=== PATIENT | female | born 1950 | race Caucasian/White ===

== ENCOUNTER 2016-09-29 16:24 | Emergency (ER) | payer OTHER, MEDICARE ==
[~2016-09-29] VITALS: Ht 157.5 cm; Wt 105.0 kg
[~2016-09-29 16:24] MED LIST: BACT800T5 PO; DOXY100T PO; LORTA5 PO; NIFE1TAB85 PO
[2016-09-29 16:51] VITALS: BP 140/71; PULSE 79; RESP 18; TEMP 98.2; O2SAT 96
--- NOTE | 2016-09-29 17:06 | PD ---
HPI Chief Complaint: Respiratory Symptoms Time Seen by Provider: 16:52 Travel History International Travel<30 days: No Contact w/Intl Traveler<30days: No Traveled to known affect area: No History of Present Illness HPI 66yo F with PMH of HTN (off medications) presents to the ED with c/o worsening sob after walking for 3-4 days. States that she feels sob walking from store to parking lot and this is new. +Chronic cough. Pt also states she had elevated blood pressure when she went to [facility]. Denies any fever, chest pain, n/v , abdominal pain, focal weakness or numbness. Pt has chronic bilateral lower ext swelling and chronic cellulitis and states that her cellulitis is actually improved. Pt called her PMD Dr. Medrano today and was informed to come to the ED for further evaluation of her SOB. PFSH Past Medical History Hx Anticoagulant Therapy: No Arthritis: Yes (KNEES) Asthma: No Autoimmune Disease: No Heart Rhythm Problems: No Cancer: No Cardiovascular Problems: Yes (HTN) High Cholesterol: No Chemotherapy: No Chest Pain: No Congestive Heart Failure: No COPD: No Cerebrovascular Accident: No Diabetes: No Diminished Hearing: No Endocrine: No Gastrointestinal Disorders: Yes (INCONTINENCE URINARY) GERD: No Genitourinary: Yes (INCONTINENCE) Headaches: No Hiatal Hernia: No Heparin Induced Thrombocytopen: No Hypertension: Yes (HTN IN THE PAST) Immune Disorder: No Implanted Vascular Access Dvce: No Kidney Stones: No Musculoskeletal: Yes Neurologic: No Psychiatric: No Reproductive: No Respiratory: No Migraines: No Radiation Therapy: No Renal Failure: No Seizures: No Sleep Apnea: No Thyroid Disease: No Ulcer: Yes (HX OF ULCERS- BLEEDING ) Tetanus Vaccination: Unknown ?: Not Menopausal: Yes Past Surgical History Abdominal Surgery: Yes (2 ) AICD: No Arteriovenous Shunt: No Cardiac Surgery: No Section: Yes Ear Surgery: No Endocrine Surgery: No Eye Surgery: No Genitourinary Surgery: No Gynecologic Surgery: No Insulin Pump: No Joint Replacement: No Neurologic Surgery: No Oral Surgery: No Pacemaker: No Thoracic Surgery: No Tonsillectomy: Yes Other Surgery: Yes Social History Alcohol Use: Yes (OCC) Tobacco Use: No Substance Use: No Allergies-Medications (Allergen,Severity, Reaction): Coded Allergies: No Known Allergies (Unverified , 09/29/16) Reported Meds & Prescriptions Reported Meds & Active Scripts Active Reported Potassium Chloride ER (Potassium Chloride) 10 Meq Cap 10 Meq PO DAILY Potassium Chloride CR (Potassium Chloride) 10 Meq Tab 10 Meq PO BID Meloxicam 15 Mg Tab 15 Mg PO DAILY Zantac (Ranitidine HCl) 150 Mg Tab 150 Mg PO DAILY Review of Systems Except as stated in HPI: all other systems reviewed are Neg Physical Exam Narrative GENERAL: 66yo F not in distress. SKIN: Focused skin assessment warm/dry. HEAD: Atraumatic. Normocephalic. NECK: Trachea midline. No JVD. CARDIOVASCULAR: Regular rate and rhythm. No murmur appreciated. RESPIRATORY: No accessory muscle use. Clear to auscultation. Breath sounds equal bilaterally. No crackles. GASTROINTESTINAL: Abdomen soft, non-tender, nondistended. MUSCULOSKELETAL: +Chronic cellulitis and nonhealing ulcer. Not warm to palpation. +Edema. Clear drainage in right. NEUROLOGICAL: Awake and alert. No obvious cranial nerve deficits. Motor grossly within normal limits. Normal speech. PSYCHIATRIC: Appropriate mood and affect; insight and judgment normal. Data Data Last Documented VS Vital Signs Date Time Temp Pulse Resp B/P Pulse Ox O2 Delivery O2 Flow Rate FiO2 09/29/16 18:55 Room Air 09/29/16 18:55 69 18 146/83 96 09/29/16 17:34 2 09/29/16 16:51 98.2 Orders Complete Blood Count With Diff (09/29/16 17:00) Basic Metabolic Panel (Bmp) (09/29/16 17:00) B-Type Natriuretic Peptide (09/29/16 17:00) Act Partial Throm Time (Ptt) (09/29/16 17:00) Prothrombin Time / Inr (Pt) (09/29/16 17:00) Ckmb (Isoenzyme) Profile (09/29/16 17:00) Troponin I (09/29/16 17:00) Iv Access Insert/Monitor (09/29/16 17:00) Electrocardiogram (09/29/16 17:00) Ecg Monitoring (09/29/16 17:00) Oximetry (09/29/16 17:00) Oxygen Administration (09/29/16 17:00) Chest, Single Ap (09/29/16 17:00) CKMB (09/29/16 17:27) CKMB% (09/29/16 17:27) Labs Laboratory Tests Test 09/29/16 17:27 White Blood Count 9.4 TH/MM3 Red Blood Count 4.98 MIL/MM3 Hemoglobin 14.5 GM/DL Hematocrit 43.5 % Mean Corpuscular Volume 87.3 FL Mean Corpuscular Hemoglobin 29.1 PG Mean Corpuscular Hemoglobin 33.3 % Concent Red Cell Distribution Width 13.3 % Platelet Count 272 TH/MM3 Mean Platelet Volume 9.5 FL Neutrophils (%) (Auto) 54.5 % Lymphocytes (%) (Auto) 33.2 % Monocytes (%) (Auto) 8.2 % Eosinophils (%) (Auto) 3.3 % Basophils (%) (Auto) 0.8 % Neutrophils # (Auto) 5.1 TH/MM3 Lymphocytes # (Auto) 3.1 TH/MM3 Monocytes # (Auto) 0.8 TH/MM3 Eosinophils # (Auto) 0.3 TH/MM3 Basophils # (Auto) 0.1 TH/MM3 CBC Comment DIFF FINAL Differential Comment Prothrombin Time 11.3 SEC Prothromb Time International 1.0 RATIO Ratio Activated Partial 21.7 SEC Thromboplast Time Sodium Level 142 MEQ/L Potassium Level 4.1 MEQ/L Chloride Level 108 MEQ/L Carbon Dioxide Level 25.2 MEQ/L Anion Gap 9 MEQ/L Blood Urea Nitrogen 9 MG/DL Creatinine 1.00 MG/DL Estimat Glomerular Filtration 55 ML/MIN Rate Random Glucose 93 MG/DL Calcium Level 7.9 MG/DL Total Creatine Kinase 147 U/L Creatine Kinase MB 2.8 NG/ML Troponin I LESS THAN 0.02 NG/ML B-Type Natriuretic Peptide 48 PG/ML [facility] Medical Decision Making Medical Screen Exam Complete: Yes Emergency Medical Condition: Yes Interpretation(s) EKG: NSR 67bpm. Normal axis. TWI V2. Differential Diagnosis New onset CHF vs. Pneumonia vs. URI Narrative Course 66yo F well appearing here with complain of worsening exertional dyspnea. Pt states when she sits there, she does not feel sob. O2 sat 97% on RA. Pt denies any chest pain and is not in distress. Pt was also concern with elevated blood pressure but BP has been normal here. Labs reviewed, no leukocytosis. Troponin negative. BNP 48. CXR showed cardiomegaly with minimal bibasilar atelectasis. Pt's lungs are clear on exam. I feel that pt does need cardiology follow up for work up for new onset CHF. However, pt can follow up as an outpatient at this time. She has an appointment with her primary care physician Dr. Medrano at 9:30am tomorrow. Return precautions given. Diagnosis Primary Impression: Dyspnea on exertion Patient Instructions: General Instructions Departure Forms: Tests/Procedures Additional Instructions: Please follow up with your PMD for referral for price changer or follow up with Dr. Jauregui in 1-2 days. Return to the ED if symptoms worsen. Med/Other Pt SpecificInfo: No Change to Meds Disposition: 01 DISCHARGE HOME Condition: Stable Denise Hull DO Sep 29, 2016 17:06
[2016-09-29] MEDS ORDERED: MELO-1 PO (17:27)
[2016-09-29] MEDS ORDERED: ZANT150T2 PO (17:27)
[2016-09-29] MEDS ORDERED: POTA10TA8 PO (17:27)
[2016-09-29] MEDS ORDERED: POTA10CA PO (17:27)
[2016-09-29 17:33] VITALS: BP 122/77; PULSE 66; RESP 16; O2SAT 97
[2016-09-29 17:34] VITALS: RESP 16; O2SAT 97
[2016-09-29 17:53] LABS: AUTOMATED NEUTROPHIL # 5.1 TH/MM3 (1.8-7.7); BASOPHIL # 0.1 TH/MM3 (0-0.2); BASOPHIL % 0.8 % (0.0-2.0); EOSINOPHIL # 0.3 TH/MM3 (0-0.4); EOSINOPHIL % 3.3 % (0.0-4.0); HEMATOCRIT 43.5 % (35.0-46.0); LYMPH % 33.2 % (9.0-44.0); LYMPHOCYTE # 3.1 TH/MM3 (1.0-4.8); MEAN CELL VOLUME 87.3 FL (80.0-100.0); MEAN CORPUSCULAR HEMOGLOBIN 29.1 PG (27.0-34.0); MEAN CORPUSCULAR HGB CONC 33.3 % (32.0-36.0); MONO % 8.2 % (0.0-8.0); NEUT % 54.5 % (16.0-70.0); PLATELET COUNT 272 TH/MM3 (150-450); RED BLOOD COUNT 4.98 MIL/MM3 (4.00-5.30); RED CELL DISTRIBUTION WIDTH 13.3 % (11.6-17.2); WHITE BLOOD COUNT 9.4 TH/MM3 (4.0-11.0)
[2016-09-29 17:54] LABS: CHLORIDE 108 MEQ/L (98-107); POTASSIUM 4.1 MEQ/L (3.5-5.1); SODIUM (NA) 142 MEQ/L (136-145)
[2016-09-29 17:59] LABS: ANION GAP 9 MEQ/L (5-15); BICARBONATE 25.2 MEQ/L (21.0-32.0); BLOOD UREA NITROGEN 9 MG/DL (7-18); HEMO FLAGS DIFF FINAL
[2016-09-29 18:02] LABS: GLOMERULAR FILTRATION RATE 55 ML/MIN (>89)
[2016-09-29 18:05] LABS: CREATINE KINASE 147 U/L (26-192)
[2016-09-29 18:08] LABS: APTT (PATIENT) 21.7 SEC (24.3-30.1); PROTHROMBIN TIME - PATIENT 11.3 SEC (9.8-11.6)
--- NOTE | 2016-09-29 18:09 | RADHPO ---
EXAM DATE/TIME: 09/29/2016 17:52 [facility] COMPARISON: CHEST SINGLE AP, February 27, 2014, 17:55. INDICATIONS : Shortness of breath. MEDICAL HISTORY : Hypertension. SURGICAL HISTORY : None. ENCOUNTER: Initial ACUITY: 3 weeks PAIN SCORE: 0/10 LOCATION: Bilateral chest FINDINGS: A single view of the chest demonstrates cardiomegaly and minimal bibasilar densities. The cardiomedia stinal contours are unremarkable. Osseous structures are intact. CONCLUSION: Cardiomegaly with minimal bibasilar atelectasis. Lenin Waggoner MD on September 29, 2016 at 18:08 Board Certified Radiologist. This report was verified electronically.
[2016-09-29 18:18] LABS: CKMB 2.8 NG/ML (0.5-3.6)
[2016-09-29 18:55] VITALS: BP 146/83; PULSE 69; RESP 18; O2SAT 96
--- NOTE | 2016-09-30 10:57 | EKG ---
Date Performed: 09/29/2016 Time Performed: 17:32:48 PTAGE: 66 years EKG: Sinus rhythm Prolonged QT interval Possible anterior infarct - age undetermined Inferior/lateral ST-T changes are nonspecific Abnormal ECG PREVIOUS TRACING : 02/28/2014 05.53 Compared to prior tracing no significant change DOCTOR: Bethany Carter Interpretating Date/Time 09/30/2016 10:56:55
== END 2016-09-29 19:52 | disposition home or self-care (01) ==
LOC: PHED 16:24
DX: R06.00 Dyspnea, unspecified (principal); I10 Essential (primary) hypertension; I45.81 Long QT syndrome; R94.31 Abnormal electrocardiogram [ECG] [EKG]
CPT/HCPCS: 71010; 80048; 82550; 82552; 83880; 84484; 85025; 85610; 85730; 93005

== ENCOUNTER 2017-03-06 01:10 | Inpatient (IN) | payer OTHER, MEDICARE ==
[2017-03-06] VITALS (8 sets, daily range): BP systolic 96–134; BP diastolic 60–88; PULSE 68–92; RESP 14–20; TEMP 96.1–99; O2SAT 94–97
[~2017-03-06] VITALS: Ht 157.5 cm; Wt 100.9 kg
[~2017-03-06 01:10] MED LIST changes: -BACT800T5 PO; -DOXY100T PO; -LORTA5 PO; +MELO-1 PO; -NIFE1TAB85 PO; +POTA10CA PO; +POTA10TA8 PO; +ZANT150T2 PO
--- NOTE | 2017-03-06 02:04 | PD ---
HPI Chief Complaint: Skin Problem Time Seen by Provider: 02:01 Travel History International Travel<30 days: No Contact w/Intl Traveler<30days: No Traveled to known affect area: No History of Present Illness HPI The patient is a 67-year-old female who states she ran out of her Lasix 6 months ago on her legs started swelling in the last 4 days she has had cellulitis. She also states she has had intermittent vomiting for the last 7 days. She did not call her doctor to refill the Lasix. She has an appointment this coming Wednesday with her primary care physician. She states she gets bilateral lower leg swelling but the swelling on the left leg was more and she gets blisters and pockets of fluid that become itchy and she scratches her legs and this breaks the skin. Apparently, bacterial intubated some of the breaks in the skin on her left leg causing the cellulitis. She denies any fever. She has never had a clot in her legs before. She is not on anticoagulants. PFSH Past Medical History Hx Anticoagulant Therapy: No Arthritis: Yes (KNEES) Asthma: No Autoimmune Disease: No Heart Rhythm Problems: No Cancer: No Cardiovascular Problems: Yes (HTN) High Cholesterol: No Chemotherapy: No Chest Pain: No Congestive Heart Failure: No COPD: No Cerebrovascular Accident: No Diabetes: No Diminished Hearing: No Endocrine: No Gastrointestinal Disorders: Yes (INCONTINENCE URINARY) GERD: No Genitourinary: Yes (INCONTINENCE) Headaches: No Hiatal Hernia: No Heparin Induced Thrombocytopen: No Hypertension: Yes (HTN IN THE PAST) Immune Disorder: No Implanted Vascular Access Dvce: No Kidney Stones: No Musculoskeletal: Yes Neurologic: No Psychiatric: No Reproductive: No Respiratory: No Migraines: No Radiation Therapy: No Renal Failure: No Seizures: No Sleep Apnea: No Thyroid Disease: No Ulcer: Yes (HX OF ULCERS- BLEEDING ) ?: Not Menopausal: Yes Past Surgical History Abdominal Surgery: Yes (2 ) AICD: No Arteriovenous Shunt: No Cardiac Surgery: No Section: Yes Ear Surgery: No Endocrine Surgery: No Eye Surgery: No Genitourinary Surgery: No Gynecologic Surgery: No Insulin Pump: No Joint Replacement: No Neurologic Surgery: No Oral Surgery: No Pacemaker: No Thoracic Surgery: No Tonsillectomy: Yes Other Surgery: Yes Social History Alcohol Use: Yes (OCC) Tobacco Use: No Substance Use: No Allergies-Medications (Allergen,Severity, Reaction): Coded Allergies: No Known Allergies (Unverified , 03/06/17) Reported Meds & Prescriptions Reported Meds & Active Scripts Active No Active Prescriptions or Reported Medications Review of Systems Except as stated in HPI: all other systems reviewed are Neg Physical Exam Narrative GENERAL: The patient is alert, obese, oriented 3 and slight apparent distress with her cellulitis of the left leg. Her vital signs are normal. SKIN: Focused skin assessment warm/dry. There is redness of the left leg, apparent cellulitis. There is a 8 mm laceration with the patient apparently scratched her skin on the left lower medial leg. It is oozing clear fluid. HEAD: Atraumatic. Normocephalic. EYES: Pupils equal and round. No scleral icterus. No injection or drainage. ENT: No nasal bleeding or discharge. Mucous membranes pink and moist. NECK: Trachea midline. No JVD. CARDIOVASCULAR: Regular rate and rhythm. No murmur appreciated. RESPIRATORY: No accessory muscle use. Clear to auscultation. Breath sounds equal bilaterally. GASTROINTESTINAL: Abdomen soft, non-tender, nondistended. Hepatic and splenic margins not palpable. MUSCULOSKELETAL: No obvious deformities. No clubbing. No cyanosis. No edema. NEUROLOGICAL: Awake and alert. No obvious cranial nerve deficits. Motor grossly within normal limits. Normal speech. PSYCHIATRIC: Appropriate mood and affect; insight and judgment normal. Data Data Last Documented VS Vital Signs Date Time Temp Pulse Resp B/P (MAP) Pulse Ox O2 Delivery O2 Flow Rate FiO2 03/06/17 01:41 89 03/06/17 01:37 16 134/88 (103) 96 03/06/17 01:25 99.0 Orders Orders Complete Blood Count With Diff (03/06/17 02:08) Comprehensive Metabolic Panel (03/06/17 02:08) B-Type Natriuretic Peptide (03/06/17 02:08) Urinalysis - C+S If Indicated (03/06/17 02:08) Us Leg Venous Doppler Bilat (03/06/17 02:08) Chest, Pa & Lat (03/06/17 02:08) Lipase (03/06/17 02:08) Potassium Chloride (Kcl) (03/06/17 03:00) Sodium Chlor 0.9% 1000 Ml Inj (Ns 1000 M (03/06/17 04:00) Admit Order (Ed Use Only) (03/06/17 04:24) Vancomycin Inj (Vancomycin Inj) (03/06/17 04:30) Labs Laboratory Tests Test 03/06/17 02:00 White Blood Count 12.0 TH/MM3 Red Blood Count 4.87 MIL/MM3 Hemoglobin 14.5 GM/DL Hematocrit 42.9 % Mean Corpuscular Volume 88.1 FL Mean Corpuscular Hemoglobin 29.9 PG Mean Corpuscular Hemoglobin Concent 33.9 % Red Cell Distribution Width 13.1 % Platelet Count 211 TH/MM3 Mean Platelet Volume 9.7 FL Neutrophils (%) (Auto) 85.8 % Lymphocytes (%) (Auto) 9.5 % Monocytes (%) (Auto) 4.3 % Eosinophils (%) (Auto) 0.0 % Basophils (%) (Auto) 0.4 % Neutrophils # (Auto) 10.4 TH/MM3 Lymphocytes # (Auto) 1.1 TH/MM3 Monocytes # (Auto) 0.5 TH/MM3 Eosinophils # (Auto) 0.0 TH/MM3 Basophils # (Auto) 0.0 TH/MM3 CBC Comment DIFF FINAL Differential Comment Blood Urea Nitrogen 37 MG/DL Creatinine 1.50 MG/DL Random Glucose 136 MG/DL Total Protein 7.7 GM/DL Albumin 2.8 GM/DL Calcium Level 8.7 MG/DL Alkaline Phosphatase 86 U/L Aspartate Amino Transf (AST/SGOT) 61 U/L Alanine Aminotransferase (ALT/SGPT) 56 U/L Total Bilirubin 1.5 MG/DL Sodium Level 136 MEQ/L Potassium Level 3.0 MEQ/L Chloride Level 97 MEQ/L Carbon Dioxide Level 28.9 MEQ/L Anion Gap 10 MEQ/L Estimat Glomerular Filtration Rate 34 ML/MIN B-Type Natriuretic Peptide 25 PG/ML Lipase 143 U/L MDM Medical Decision Making Medical Screen Exam Complete: Yes Emergency Medical Condition: Yes Medical Record Reviewed: Yes Interpretation(s) The complete metabolic profile shows a potassium of 3.0, BUN of 37, creatinine 1.5, GFR 34, glucose 136 with total bilirubin 1.5 and AST of 61 and ALT of 56 but is otherwise normal. The lipase is normal. The CBC shows a white count of 12,000 with 86% neutrophils. The ultrasound is negative for DVT. Differential Diagnosis Cellulitis, congestive heart failure, venous insufficiency, lymphatic insufficiency, DVT, electrolyte disorder Narrative Course The patient has cellulitis. She ran out of her Lasix approximate 6 months ago. She did not call her doctor about this and this is likely responsible spur some of the edema that she has. She is dehydrated, likely moderate dehydration. She has been vomiting for a week according to her and has almost no abdominal pain. There is no abdominal distention. Impressions: Cellulitis left lower extremity, persistent vomiting, dehydration- moderate and noncompliance to Lasix and medical follow-up/communication with her doctor Diagnosis Primary Impression: Cellulitis of left lower extremity Additional Impressions: Persistent vomiting Moderate dehydration Noncompliance with medication regimen Admitting Information Admitting Physician Requests: Admit Scripts No Active Prescriptions or Reported Meds Niranjan Shelby MD Mar 06, 2017 02:04
[2017-03-06 02:22] LABS: AUTOMATED NEUTROPHIL # 10.4 TH/MM3 (1.8-7.7); BASOPHIL % 0.4 % (0.0-2.0); HEMATOCRIT 42.9 % (35.0-46.0); HEMO FLAGS DIFF FINAL; LYMPH % 9.5 % (9.0-44.0); LYMPHOCYTE # 1.1 TH/MM3 (1.0-4.8); MEAN CELL VOLUME 88.1 FL (80.0-100.0); MEAN CORPUSCULAR HEMOGLOBIN 29.9 PG (27.0-34.0); MEAN CORPUSCULAR HGB CONC 33.9 % (32.0-36.0); MONO % 4.3 % (0.0-8.0); NEUT % 85.8 % (16.0-70.0); PLATELET COUNT 211 TH/MM3 (150-450); RED BLOOD COUNT 4.87 MIL/MM3 (4.00-5.30); RED CELL DISTRIBUTION WIDTH 13.1 % (11.6-17.2)
[2017-03-06 02:34] LABS: CHLORIDE 97 MEQ/L (98-107); SODIUM (NA) 136 MEQ/L (136-145)
[2017-03-06 02:38] LABS: ANION GAP 10 MEQ/L (5-15); BICARBONATE 28.9 MEQ/L (21.0-32.0); BLOOD UREA NITROGEN 37 MG/DL (7-18)
[2017-03-06 02:41] LABS: ALT (GPT) 56 U/L (10-53); AST (GOT) 61 U/L (15-37); GLOMERULAR FILTRATION RATE 34 ML/MIN (>89)
[2017-03-06 02:42] LABS: TOTAL BILIRUBIN ADULT 1.5 MG/DL (0.2-1.0)
[2017-03-06 02:44] LABS: ALKALINE PHOSPHATASE 86 U/L (45-117)
[2017-03-06] MEDS ORDERED: POTASSIUM CHLORIDE 20 MEQ CONTROLLED RELEASE TAB PO ONE (03:00)
--- NOTE | 2017-03-06 03:25 | RADRPT ---
EXAM DATE/TIME: 03/06/2017 03:17 [facility] COMPARISON: No previous studies available for comparison. INDICATIONS : Shortness of breath. MEDICAL HISTORY : Hypertension. SURGICAL HISTORY : None. ENCOUNTER: Initial ACUITY: 4 - 6 days PAIN SCORE: 6/10 LOCATION: Bilateral chest FINDINGS: PA and lateral views of the chest demonstrate subsegmental atelectasis or scarring at the bases. No d ense consolidation or effusion. Mild dextroscoliosis. Heart size within normal limits. CONCLUSION: 1. Linear atelectasis or scarring at the lung bases. No effusion or pneumothorax. Donovan Eastman MD on March 06, 2017 at 3:23 Board Certified Radiologist. This report was verified electronically.
[2017-03-06] MEDS ORDERED: SODIUM CHLOR 0.9% 1000 ML INJ 1,000 ML IV SCH ×2 (04:00→04:30)
[2017-03-06] MEDS ORDERED: VANCOMYCIN INJ 1,000 MG in SODIUM CHLOR 0.9% 250 ML INJ 250 ML IV ONE (04:30)
[2017-03-06] MEDS ORDERED: ONDANSETRON HCL 4 MG/2 ML VIAL IV ONE (04:30)
[2017-03-06] MEDS ORDERED: SENNOSIDES 8.6 MG TAB PO PRN (04:45)
[2017-03-06] MEDS ORDERED: BISACODYL 10 MG SUPP RECTAL PRN (04:45)
[2017-03-06] MEDS ORDERED: LACTULOSE SYRUP 20 GM/30 ML CUP PO PRN (04:45)
[2017-03-06] MEDS ORDERED: Vancomycin Consult Pharmacy 1 EA OTHER SCH (04:45)
[2017-03-06] MEDS ORDERED: ONDANSETRON HCL 4 MG/2 ML VIAL IVP PRN (04:45)
[2017-03-06] MEDS ORDERED: ACETAMINOPHEN 325 MG TAB PO PRN (04:45)
[2017-03-06] MEDS ORDERED: FUROSEMIDE 40 MG/4 ML VIAL IV PUSH ONE (04:45)
[2017-03-06] MEDS ORDERED: MAGNESIUM HYDROXIDE SUSP 30 ML CUP PO PRN (04:45)
[2017-03-06] MEDS ORDERED: SODIUM CHLORIDE 0.9% FLUSH 10 ML FLUSH IV FLUSH PRN (04:45)
--- NOTE | 2017-03-06 05:17 | RADRPT ---
EXAM DATE/TIME: 03/06/2017 04:15 [facility] COMPARISON: No previous studies available for comparison. INDICATIONS : Bilateral leg swelling. MEDICAL HISTORY : Hypertension. Urinary incontinence. Arthritis. SURGICAL HISTORY : Tonsillectomy. section. ENCOUNTER: Initial ACUITY: 4 - 6 days PAIN SCORE: 3/10 LOCATION: Bilateral legs. TECHNIQUE: Venous ultrasound of the left and right leg was performed from the inguinal ligament to the proximal calf. Real-time, color Doppler and spectral tracing, compression and augmentation techniques were us ed. FINDINGS: RIGHT LEG: There is normal compressibility of the deep venous system from the inguinal region to the proximal ca lf. No echogenic clot is seen in the lumen of the common femoral, femoral, popliteal, and posterior tibial veins. There is a normal response of the venous system to proximal and distal augmentation an d respiration. LEFT LEG: There is normal compressibility of the deep venous system from the inguinal region to the proximal ca lf. No echogenic clot is seen in the lumen of the common femoral, femoral, popliteal, and posterior tibial veins. There is a normal response of the venous system to proximal and distal augmentation an d respiration. CONCLUSION: 1. Negative for lower extremity deep venous thrombosis bilaterally. Mildly enlarged inguinal lymph no mitchel. Donovan Eastman MD on March 06, 2017 at 5:15 Board Certified Radiologist. This report was verified electronically.
[2017-03-06 05:41] LABS: BLOOD, URINE SMALL (NEG); GLUCOSE,URINE NEG (NEG); KETONE, URINE NEG (NEG); NITRITE,URINE POS (NEG)
[2017-03-06 05:45] LABS: URINE COLOR YELLOW (YELLW/STRAW)
[2017-03-06 05:46] LABS: BACTERIA, URINE MANY /hpf; COMMENT (UR) CULTURE INDICATED; CULTURE IF INDICATED CULTURE INDICATED; SQUAMOUS EPITHELIAL CELL URINE 0-5 /hpf (0-5)
[2017-03-06] MEDS: CEFEPIME INJ 1,000 MG in SODIUM CHLORIDE 0.9% INJ 100 ML IV SCH ×2 (05:52→18:13)
[2017-03-06] MEDS: ACETAMINOPHEN/HYDROcodone 325 MG/5 MG TAB PO PRN ×4 (05:52→18:13)
[2017-03-06] MEDS: DOCUSATE SODIUM 50 MG/SENNA 8.6 MG TAB PO SCH ×2 (09:00→20:14)
[2017-03-06] MEDS: SODIUM CHLORIDE 0.9% FLUSH 10 ML FLUSH IV FLUSH SCH ×2 (09:46→20:14)
[2017-03-06] MEDS: HEPARIN SODIUM - SQ 10,000 UNITS/ML VIAL SQ SCH ×2 (09:51→20:15)
[2017-03-06] MEDS ORDERED: ENALAPRILAT 1.25 MG/ML VIAL IV PUSH PRN (11:45)
[2017-03-06] MEDS ORDERED: ALUMINUM/MAGNESIUM/SIMETH 30 ML CUP PO PRN (11:45)
[2017-03-06] MEDS ORDERED: cloNIDine HCL 0.1 MG TAB PO PRN (11:45)
--- NOTE | 2017-03-06 12:03 | HHI.HP ---
[facility] Service [facility] Primary Care Physician Viv Medrano MD Admission Diagnosis cellulitis left lower extremity Diagnoses: (1) Cellulitis of left lower extremity Diagnosis: Principal Travel History International Travel<30 Days: No Contact w/Intl Traveler <30 Da: No Traveled to Known Affected Are: No History of Present Illness Mrs. Rondon is a 67-year-old female. She is here secondary to cellulitis more significant at the left lower extremity compared to the right. She reports that the onset was within 24-48 hours. Since then has been rapid progression of the left lower extremity. She has recurrent problems with cellulitis. She's had several admissions secondary to cellulitis. Baseline medical conditions are hypertension and hyperlipidemia. She denies any lung or cardiac disease and denies diabetes mellitus type 2. No reports of fever or chills. Review of Systems Constitutional: DENIES: Diaphoretic episodes, Fatigue, Fever, Chills Eyes: DENIES: Blurred vision, Diplopia, Eye inflammation Ears, nose, mouth, throat: DENIES: Tinnitus, Hearing loss, Vertigo Respiratory: DENIES: Apneas, Cough, Snoring Cardiovascular: DENIES: Chest pain, Palpitations, Syncope Gastrointestinal: DENIES: Abdominal pain, Black stools, Bloody stools Musculoskeletal: DENIES: Joint pain, Muscle aches, Stiffness Integumentary: COMPLAINS OF: Abnormal pigmentation Hematologic/lymphatic: DENIES: Bruising, Lymphadenopathy Immunologic/allergic: DENIES: Eczema, Urticaria Neurologic: DENIES: Abnormal gait, Headache, Paresthesias Psychiatric: DENIES: Anxiety, Confusion, Hallucinations Past Family Social History Past Medical History Hypertension Hyperlipidemia Past Surgical History Tonsillectomy Reported Medications Reported Meds & Active Scripts Active No Active Prescriptions or Reported Medications Allergies: Coded Allergies: No Known Allergies (Unverified , 03/06/17) Active Ordered Medications Administered Medications Medications (Trade) Dose Ordered Sig/Connie Route PRN Reason Start Time Stop Time Status Last Admin Dose Admin Cefepime HCl 1000 mg/Sodium Chloride 100 ml @ 200 mls/hr Q12H IV 03/06/17 06:00 03/06/17 05:52 Sodium Chloride (NS Flush) 2 ml BID IV FLUSH 03/06/17 09:00 03/06/17 09:46 Heparin Sodium (Porcine) (Heparin Inj) 5,000 units Q12H SQ 03/06/17 09:00 03/06/17 09:51 Acetaminophen/ Hydrocodone Bitart (Antelope 5-325 Mg) 1 tab Q4H PRN PO PAIN SCALE 3 TO 5 03/06/17 04:45 03/06/17 09:55 Family History Liver cancer in father Pancreatic cancer in mother Breast cancer in paternal grandmother Melanoma in sister 1 Breast cancer in sister 2 Social History No smoking No alcohol abuse No illicit drug abuse Physical Exam Vital Signs Vital Signs Date Time Temp Pulse Resp B/P (MAP) Pulse Ox O2 Delivery O2 Flow Rate FiO2 03/06/17 10:59 18 03/06/17 08:00 97.8 72 20 106/65 (79) 94 03/06/17 05:30 03/06/17 05:20 98.5 91 16 115/73 (87) 94 03/06/17 05:04 74 16 118/77 (91) 97 03/06/17 03:30 88 16 127/72 (90) 96 03/06/17 01:41 89 03/06/17 01:37 89 16 134/88 (103) 96 03/06/17 01:25 99.0 92 16 109/69 (82) 95 Physical Exam GENERAL: NAD, A&Ox3 HEAD: Normocephalic. NECK: Supple, trachea midline. No lymphadenopathy. EYES: No scleral icterus. No injection or drainage. CARDIOVASCULAR: Regular rate and rhythm without murmurs, gallops, or rubs. RESPIRATORY: Breath sounds equal bilaterally. No accessory muscle use. GASTROINTESTINAL: Abdomen soft, non-tender, nondistended. MUSCULOSKELETAL: No cyanosis, or edema. Erythema at mid lower extremity on left and right. Left lower extremity is more prominent and more erythematous. There is a 2 x 3 cm ulceration with some discharge. No signs of abscess. SKIN: Warm and dry. NEURO: No focal neurological deficitis. Laboratory Laboratory Tests Test 03/06/17 02:00 03/06/17 05:30 White Blood Count 12.0 Red Blood Count 4.87 Hemoglobin 14.5 Hematocrit 42.9 Mean Corpuscular Volume 88.1 Mean Corpuscular Hemoglobin 29.9 Mean Corpuscular Hemoglobin Concent 33.9 Red Cell Distribution Width 13.1 Platelet Count 211 Mean Platelet Volume 9.7 Neutrophils (%) (Auto) 85.8 Lymphocytes (%) (Auto) 9.5 Monocytes (%) (Auto) 4.3 Eosinophils (%) (Auto) 0.0 Basophils (%) (Auto) 0.4 Neutrophils # (Auto) 10.4 Lymphocytes # (Auto) 1.1 Monocytes # (Auto) 0.5 Eosinophils # (Auto) 0.0 Basophils # (Auto) 0.0 CBC Comment DIFF FINAL Differential Comment Blood Urea Nitrogen 37 Creatinine 1.50 Random Glucose 136 Total Protein 7.7 Albumin 2.8 Calcium Level 8.7 Alkaline Phosphatase 86 Aspartate Amino Transf (AST/SGOT) 61 Alanine Aminotransferase (ALT/SGPT) 56 Total Bilirubin 1.5 Sodium Level 136 Potassium Level 3.0 Chloride Level 97 Carbon Dioxide Level 28.9 Anion Gap 10 Estimat Glomerular Filtration Rate 34 B-Type Natriuretic Peptide 25 Lipase 143 Urine Color YELLOW Urine Turbidity SLIGHT Urine pH 6.0 Urine Specific Kodak 1.017 Urine Protein NEG Urine Glucose (UA) NEG Urine Ketones NEG Urine Occult Blood SMALL Urine Nitrite POS Urine Bilirubin NEG Urine Leukocyte Esterase TRACE Urine RBC 3-5 Urine WBC 6-8 Urine WBC Clumps FEW Urine Squamous Epithelial Cells 0-5 Urine Bacteria MANY Microscopic Urinalysis Comment CULTURE INDICATED Date/Time Source Procedure Growth Status 03/06/17 05:30 Urine Clean Catch Urine Culture Pending Received Result Diagram: 03/06/17 0200 03/06/17 0200 Caprini VTE Risk Assessment Caprini VTE Risk Assessment: Mod/High Risk (score >= 2) Caprini Risk Assessment Model Point Value = 1 Point Value = 2 Point Value = 3 Point Value = 5 Age 41-60 Minor surgery BMI > 25 kg/m2 Swollen legs Varicose veins or History of unexplained or recurrent spontaneous Oral contraceptives or hormone replacement Sepsis (< 1 month) Serious lung disease, including pneumonia (< 1 month) Abnormal pulmonary function Acute myocardial infarction Congestive heart failure (< 1 month) History of inflammatory bowel disease Medical patient at bed rest Age 61-74 Arthroscopic surgery Major open surgery (> 45 min) Laparoscopic surgery (> 45 min) Malignancy Confined to bed (> 72 hours) Immobilizing plaster cast Central venous access Age >= 75 History of VTE Family history of VTE Factor V Leiden Prothrombin [id number] Lupus anticoagulant Anticardiolipin antibodies Elevated serum homocysteine Heparin-induced thrombocytopenia Other congenital or acquired thrombophilia Stroke (< 1 month) Elective arthroplasty Hip, pelvis, or leg fracture Acute spinal cord injury (< 1 month) Prophylaxis Regimen Total Risk Factor Score Risk Level Prophylaxis Regimen 0-1 Low Early ambulation 2 Moderate Order ONE of the following: *Sequential Compression Device (SCD) *Heparin 5000 units SQ BID 3-4 Higher Order ONE of the following medications: *Heparin 5000 units SQ TID *Enoxaparin/Lovenox 40 mg SQ daily (WT < 150 kg, CrCl > 30 mL/min) *Enoxaparin/Lovenox 30 mg SQ daily (WT < 150 kg, CrCl > 10-29 mL/min) *Enoxaparin/Lovenox 30 mg SQ BID (WT < 150 kg, CrCl > 30 mL/min) AND/OR *Sequential Compression Device (SCD) 5 or more Highest Order ONE of the following medications: *Heparin 5000 units SQ TID (Preferred with Epidurals) *Enoxaparin/Lovenox 40 mg SQ daily (WT < 150 kg, CrCl > 30 mL/min) *Enoxaparin/Lovenox 30 mg SQ daily (WT < 150 kg, CrCl > 10-29 mL/min) *Enoxaparin/Lovenox 30 mg SQ BID (WT < 150 kg, CrCl > 30 mL/min) AND *Sequential Compression Device (SCD) Assessment and Plan Problem List: (1) Cellulitis of left lower extremity ICD Code: L03.116 - Cellulitis of left lower extremity Status: Acute Assessment and Plan Assessment and plan 67-year-old female admitted secondary to acute cellulitis Left lower extremity cellulitis Recurrent cellulitis Continue vancomycin Continue cefepime Follow for improvement Swab culture obtained Monitor cultures Probiotics Hypertension Patient is not on a treatment at home Follow blood pressures As needed enalapril Hyperlipidemia Continue dietary treatments Follows in outpatient DVT prophylaxis Heparin Physician Certification 2 Midnight Certification Type: Admission for Inpatient Services Order for Inpatient Services The services are ordered in accordance with Medicare regulations or non- Medicare payer requirements, as applicable. In the case of services not specified as inpatient-only, they are appropriately provided as inpatient services in accordance with the 2-midnight benchmark. Estimated LOS (days): 3 days is the estimated time the patient will need to remain in the hospital, assuming treatment plan goals are met and no additional complications. Post-Hospital Plan: Chidi Condon MD Mar 06, 2017 12:03
[2017-03-06] MEDS: LACTOBACILLUS ACIDOPHILUS TAB PO SCH ×2 (13:37→18:13)
[2017-03-06] MEDS ORDERED: FAMOTIDINE 20 MG TAB PO SCH (21:00)
[2017-03-07] MEDS ORDERED: VANCOMYCIN 1,500 MG/NS 500 ML IV SCH ×2
[2017-03-07 00:15] VITALS: BP 107/72; PULSE 68; RESP 14; TEMP 98; O2SAT 95
[2017-03-07 00:40] VITALS: BP 107/72; PULSE 68
[2017-03-07] MEDS: ACETAMINOPHEN/HYDROcodone 325 MG/10 MG TAB PO PRN ×2 (05:41→21:27)
[2017-03-07] MEDS: CEFEPIME INJ 1,000 MG in SODIUM CHLORIDE 0.9% INJ 100 ML IV SCH ×2 (05:41→17:29)
[2017-03-07 07:16] LABS: AUTOMATED NEUTROPHIL # 4.9 TH/MM3 (1.8-7.7); BASOPHIL % 0.3 % (0.0-2.0); EOSINOPHIL # 0.1 TH/MM3 (0-0.4); EOSINOPHIL % 1.2 % (0.0-4.0); HEMATOCRIT 37.4 % (35.0-46.0); LYMPH % 19.5 % (9.0-44.0); LYMPHOCYTE # 1.4 TH/MM3 (1.0-4.8); MEAN CELL VOLUME 90.6 FL (80.0-100.0); MEAN CORPUSCULAR HGB CONC 33.1 % (32.0-36.0); MONO % 8.1 % (0.0-8.0); NEUT % 70.9 % (16.0-70.0); PLATELET COUNT 193 TH/MM3 (150-450); RED BLOOD COUNT 4.13 MIL/MM3 (4.00-5.30); RED CELL DISTRIBUTION WIDTH 13.6 % (11.6-17.2)
[2017-03-07 07:22] LABS: CHLORIDE 102 MEQ/L (98-107); POTASSIUM 3.2 MEQ/L (3.5-5.1); SODIUM (NA) 139 MEQ/L (136-145)
[2017-03-07 07:24] LABS: HEMO FLAGS DIFF FINAL
[2017-03-07 07:26] LABS: ANION GAP 7 MEQ/L (5-15); BICARBONATE 29.8 MEQ/L (21.0-32.0)
[2017-03-07 07:27] LABS: BLOOD UREA NITROGEN 28 MG/DL (7-18)
[2017-03-07 07:29] LABS: AST (GOT) 37 U/L (15-37)
[2017-03-07 07:30] LABS: ALT (GPT) 37 U/L (10-53); GLOMERULAR FILTRATION RATE 49 ML/MIN (>89)
[2017-03-07 07:31] LABS: TOTAL BILIRUBIN ADULT 0.9 MG/DL (0.2-1.0)
[2017-03-07 07:32] LABS: ALKALINE PHOSPHATASE 83 U/L (45-117)
[2017-03-07 08:00] VITALS: BP 109/73; PULSE 70; RESP 20; TEMP 97.6; O2SAT 96
[2017-03-07] MEDS: HEPARIN SODIUM - SQ 10,000 UNITS/ML VIAL SQ SCH ×2 (08:46→21:27)
[2017-03-07] MEDS: LACTOBACILLUS ACIDOPHILUS TAB PO SCH ×3 (08:46→17:29)
[2017-03-07] MEDS: DOCUSATE SODIUM 50 MG/SENNA 8.6 MG TAB PO SCH ×2 (08:47→21:28)
[2017-03-07] MEDS: SODIUM CHLORIDE 0.9% FLUSH 10 ML FLUSH IV FLUSH SCH ×2 (08:52→21:28)
[2017-03-07] MEDS: FAMOTIDINE 20 MG TAB PO SCH ×2 (08:53→21:28)
[2017-03-07] MEDS ORDERED: PILL SPLITTER OTHER PRN (09:00)
[2017-03-07] MEDS ORDERED: PNEUMOCOCCAL POLYVALENT INJ 25 MCG/0.5 ML SYR IM ONE (10:00)
[2017-03-07] MEDS ORDERED: INFLUENZA VIRUS VACCINE (QUADRIVALENT) 0.5 ML SYR IM ONE (10:00)
--- NOTE | 2017-03-07 10:42 | HHI.PR ---
Subjective Remarks Patient feels infection area and left lower extremity has improved. There is less swelling about area. Her foot has increased swelling but this is likely a combination of ambulation and vascular restriction is site of infection. No other new complaints from the patient. Objective Vital Signs Date Time Temp Pulse Resp B/P (MAP) Pulse Ox O2 Delivery O2 Flow Rate FiO2 03/07/17 08:00 97.6 70 20 109/73 (85) 96 03/07/17 00:40 68 107/72 (84) 03/07/17 00:15 98.0 68 14 107/72 (84) 95 03/06/17 20:15 96.1 68 14 96/68 (77) 94 03/06/17 15:12 18 03/06/17 12:00 98.8 71 20 107/60 (76) 96 I/O 03/06/17 03/06/17 03/06/17 03/07/17 03/07/17 03/07/17 07:00 15:00 23:00 07:00 15:00 23:00 Intake Total 1350 ml 100 ml 615 ml Output Total 500 ml Balance 850 ml 100 ml 615 ml Intake IV Total 1350 ml 100 ml 615 ml Output Urine Total 500 ml # Voids 1 1 2 # Bowel Movements 0 Result Diagram: 03/07/1761903/07/17619 Objective Remarks GENERAL: NAD, A&Ox3 HEAD: Normocephalic. NECK: Supple, trachea midline. No lymphadenopathy. EYES: No scleral icterus. No injection or drainage. CARDIOVASCULAR: Regular rate and rhythm without murmurs, gallops, or rubs. RESPIRATORY: Breath sounds equal bilaterally. No accessory muscle use. GASTROINTESTINAL: Abdomen soft, non-tender, nondistended. MUSCULOSKELETAL: No cyanosis, or edema. Bilateral lower extremities bandage. Erythema bilateral lower extremities greater in the left lower extremity. Medial ulcer measures 2 cm x 3 cm. SKIN: Warm and dry. NEURO: No focal neurological deficitis. A/P Problem List: (1) Cellulitis of left lower extremity ICD Code: L03.116 - Cellulitis of left lower extremity Status: Acute Assessment and Plan Assessment and plan 67-year-old female admitted secondary to acute cellulitis. Improving today. Continue antibiotics. Monitor cultures. Left lower extremity cellulitis Recurrent cellulitis Continue vancomycin Continue cefepime Follow for improvement Swab culture obtained Monitor cultures Probiotics Hypertension Patient is not on a treatment at home Follow blood pressures As needed enalapril Hyperlipidemia Continue dietary treatments Follows in outpatient DVT prophylaxis Heparin Chidi Krause MD Mar 07, 2017 10:42
[2017-03-07 12:00] VITALS: BP 114/77; PULSE 69; RESP 18; TEMP 97; O2SAT 96
[2017-03-07] MEDS: ACETAMINOPHEN/HYDROcodone 325 MG/5 MG TAB PO PRN ×2 (13:36→17:29)
[2017-03-07 16:00] VITALS: BP 118/64; PULSE 68; RESP 20; TEMP 97.1; O2SAT 97
[2017-03-07 20:27] VITALS: BP 108/76; PULSE 73; RESP 18; TEMP 98.3; O2SAT 95
[2017-03-08] VITALS: BP 112/68; PULSE 72; RESP 16; TEMP 97.9; O2SAT 95
[2017-03-08] MEDS: CEFEPIME INJ 1,000 MG in SODIUM CHLORIDE 0.9% INJ 100 ML IV SCH (05:35)
[2017-03-08] MEDS ORDERED: PHARMACY ORDERED LAB ONE (06:00)
[2017-03-08 08:00] VITALS: BP 101/58; PULSE 60; RESP 18; TEMP 97.6; O2SAT 94
[2017-03-08] MEDS: DOCUSATE SODIUM 50 MG/SENNA 8.6 MG TAB PO SCH (09:55)
[2017-03-08] MEDS: FAMOTIDINE 20 MG TAB PO SCH (09:55)
[2017-03-08] MEDS: LACTOBACILLUS ACIDOPHILUS TAB PO SCH ×2 (09:55→12:14)
[2017-03-08] MEDS: SODIUM CHLORIDE 0.9% FLUSH 10 ML FLUSH IV FLUSH SCH (09:55)
[2017-03-08] MEDS: HEPARIN SODIUM - SQ 10,000 UNITS/ML VIAL SQ SCH (09:56)
[2017-03-08] MEDS: ACETAMINOPHEN/HYDROcodone 325 MG/10 MG TAB PO PRN (09:56)
[2017-03-08 10:56] VITALS: RESP 18
[2017-03-08] MEDS ORDERED: LACT PO (11:13)
[2017-03-08] MEDS ORDERED: BACT800T5 PO (11:13)
--- NOTE | 2017-03-08 11:16 | HHI.DS ---
Discharge Summary Admission Date Mar 06, 2017 at 04:26 Discharge Date: Mar 08, 2017 Admitting Diagnosis cellulitis left lower extremity (1) Cellulitis of left lower extremity ICD Code: L03.116 - Cellulitis of left lower extremity Diagnosis: Principal Status: Acute Procedures None Brief History - From Admission Mrs. Rondon is a 67-year-old female. She is here secondary to cellulitis more significant at the left lower extremity compared to the right. She reports that the onset was within 24-48 hours. Since then has been rapid progression of the left lower extremity. She has recurrent problems with cellulitis. She's had several admissions secondary to cellulitis. Baseline medical conditions are hypertension and hyperlipidemia. She denies any lung or cardiac disease and denies diabetes mellitus type 2. No reports of fever or chills. CBC/BMP: 03/07/17 0620 03/08/17 0630 Significant Findings Laboratory Tests Test 03/06/17 02:00 03/06/17 05:30 03/07/17 06:20 03/08/17 06:30 White Blood Count 12.0 TH/MM3 (4.0-11.0) Neutrophils (%) (Auto) 85.8 % (16.0-70.0) 70.9 % (16.0-70.0) Neutrophils # (Auto) 10.4 TH/MM3 (1.8-7.7) Blood Urea Nitrogen 37 MG/DL (7-18) 28 MG/DL (7-18) Creatinine 1.50 MG/DL (0.50-1.00) 1.10 MG/DL (0.50-1.00) Random Glucose 136 MG/DL (74-106) Albumin 2.8 GM/DL (3.4-5.0) 2.3 GM/DL (3.4-5.0) Aspartate Amino Transf (AST/SGOT) 61 U/L (15-37) Alanine Aminotransferase (ALT/SGPT) 56 U/L (10-53) Total Bilirubin 1.5 MG/DL (0.2-1.0) Potassium Level 3.0 MEQ/L (3.5-5.1) 3.2 MEQ/L (3.5-5.1) Chloride Level 97 MEQ/L (98-107) Estimat Glomerular Filtration Rate 34 ML/MIN (>89) 49 ML/MIN (>89) 60 ML/MIN (>89) Urine Occult Blood SMALL (NEG) Urine Nitrite POS (NEG) Urine Leukocyte Esterase TRACE (NEG) Urine WBC 6-8 /hpf (0-5) Urine WBC Clumps FEW (NONE) Urine Bacteria MANY /hpf (NONE) Monocytes (%) (Auto) 8.1 % (0.0-8.0) Hospital Course Mrs. Rondon is a 67-year-old female. She was admitted for left lower extremity cellulitis. She has problems with recurrent lower extremity cellulitis. Initial treatments were vancomycin and cefepime. She was also found to have a urinary tract infection. Urinary tract infection grew out Escherichia coli. Left lower extremity wound showed strep and staph aureus. Both of these infections are sensitive to Bactrim. Patient is improving through time on current treatments and at this point is transitioned to oral Bactrim to continue at home. She will be on oral antibiotics for 10 more days and a probiotic. Medically stable and cleared for discharge home today. Pt Condition on Discharge: Stable Discharge Disposition: Discharge Home Discharge Time: <= 30 minutes Discharge Instructions DIET: Follow Instructions for: As Tolerated, No Restrictions Activities you can perform: Regular-No Restrictions Follow up Referrals: PCP Follow-up - 1 Week New Medications: Sulfamethoxazole-Trimethoprim (Bactrim DS) 800-160 Mg Tab 1 TAB PO BID for Infection, #20 TAB 0 Refills Lactobacillus Acidophilus (Acidophilus/l-Sporogenes) 35 Million Cell-25 Million Cell Tab 1 TAB PO TID for Probiotic, #30 TAB Chidi Krause MD Mar 08, 2017 11:16
[2017-03-08] MEDS ORDERED: VANCOMYCIN 1,500 MG/NS 500 ML IV SCH ×2 (12:00)
[2017-03-11] MEDS ORDERED: PHARMACY ORDERED LAB ONE (11:45)
== END 2017-03-08 12:58 | disposition home or self-care (01) | DRG 603 ==
LOC: PHED 01:10 → PHEDA 04:26 → PH3B 05:25
PROVIDERS: ADMIT Hospitalist; ATTEND Hospitalist
DX: L03.116 Cellulitis of left lower limb (principal); I10 Essential (primary) hypertension; N39.0 Urinary tract infection, site not specified; L03.115 Cellulitis of right lower limb; R32 Unspecified urinary incontinence; M17.0 Bilateral primary osteoarthritis of knee; E86.0 Dehydration; Z91.14 Patient's other noncompliance with medication regimen; Z91.19 Patient's noncompliance with other medical treatment and regimen; R11.10 Vomiting, unspecified; E78.5 Hyperlipidemia, unspecified; Z80.3 Family history of malignant neoplasm of breast; Z80.0 Family history of malignant neoplasm of digestive organs; Z80.8 Family history of malignant neoplasm of other organs or systems; B96.20 Unspecified Escherichia coli [E. coli] as the cause of diseases classified elsewhere; Z23 Encounter for immunization
CPT/HCPCS: 71020; 80053; 80202; 81001; 82565; 83690; 83880; 85025; 86403; 87070; 87077; 87086; 87147; 87186; 87205; 90686; 90732; 93970; 94620; J0692; J1644; J1940; J2405; J3370; J7030; J7040; J7050; Q2038

== ENCOUNTER 2017-08-29 22:01 | Inpatient (IN) | payer OTHER, MEDICARE ==
[~2017-08-29] VITALS: Ht 157.5 cm; Wt 90.0 kg
[~2017-08-29 22:01] MED LIST changes: +BACT800T5 PO; +LACT PO; -MELO-1 PO; -POTA10CA PO; -POTA10TA8 PO; -ZANT150T2 PO
[2017-08-29 22:07] VITALS: BP 150/72; PULSE 102; RESP 18; TEMP 100.1; O2SAT 96
[2017-08-29] MEDS ORDERED: POTA10TA15 PO (22:18)
[2017-08-29] MEDS ORDERED: RANI150T PO (22:18)
[2017-08-29] MEDS ORDERED: HYDR25TA5 PO (22:18)
[2017-08-29] MEDS ORDERED: LOSA50TA PO (22:18)
[2017-08-29 22:19] VITALS: BP 134/67; PULSE 100; RESP 16; O2SAT 96
[2017-08-29] MEDS ORDERED: TETANUS/DIPHTHERIA TOXOID ADULT 0.5 ML VIAL IM ONE (23:00)
[2017-08-29] MEDS ORDERED: DILTIAZEM INJ 125 MG in SODIUM CHLORIDE 0.9% INJ 100 ML IV PRN (23:15)
[2017-08-29] MEDS ORDERED: VANCOMYCIN INJ 1,000 MG in SODIUM CHLOR 0.9% 250 ML INJ 250 ML IV SCH (23:30)
[2017-08-29 23:31] LABS: CALCIUM 8.9 MG/DL (8.5-10.1); CREATININE 1.19 MG/DL (0.50-1.00)
[2017-08-30] VITALS (8 sets, daily range): BP systolic 83–137; BP diastolic 38–66; PULSE 67–96; RESP 17–19; TEMP 96.9–99.5; O2SAT 18–98
[2017-08-30 00:01] LABS: AUTOMATED NEUTROPHIL # 12.4 TH/MM3 (1.8-7.7); BASOPHIL % 0.2 % (0.0-2.0); EOSINOPHIL % 0.2 % (0.0-4.0); HEMATOCRIT 41.4 % (35.0-46.0); HEMOGLOBIN 14.5 GM/DL (11.6-15.3); LYMPHOCYTE # 1.1 TH/MM3 (1.0-4.8); MEAN CELL VOLUME 86.7 FL (80.0-100.0); MEAN CORPUSCULAR HEMOGLOBIN 30.3 PG (27.0-34.0); MEAN CORPUSCULAR HGB CONC 34.9 % (32.0-36.0); MEAN PLATELET VOLUME 10.4 FL (7.0-11.0); MONO % 4.8 % (0.0-8.0); MONOCYTE # 0.7 TH/MM3 (0-0.9); NEUT % 86.8 % (16.0-70.0); PLATELET COUNT 190 TH/MM3 (150-450); RED BLOOD COUNT 4.78 MIL/MM3 (4.00-5.30); RED CELL DISTRIBUTION WIDTH 14.8 % (11.6-17.2); WHITE BLOOD COUNT 14.3 TH/MM3 (4.0-11.0)
--- NOTE | 2017-08-30 00:26 | PD ---
HPI Chief Complaint: Skin Problem Time Seen by Provider: 22:49 Travel History International Travel<30 days: No Contact w/Intl Traveler<30days: No Traveled to known affect area: No History of Present Illness HPI This is a 67-year-old female who presents today with complaints of redness and drainage from her left lower extremity. The patient has frequent cellulitis episodes of her lower extremities. Patient has a history of chronic venous stasis changes. She states last time she had cellulitis was 6 months to 1 year ago. There is reported fevers. No reported chills. No reported nausea vomiting diarrhea. There are no other complaints at time of examination. PFSH Past Medical History Hx Anticoagulant Therapy: No Arthritis: Yes (KNEES) Asthma: No Autoimmune Disease: No Heart Rhythm Problems: No Cancer: No Cardiovascular Problems: Yes High Cholesterol: No Chemotherapy: No Chest Pain: No Congestive Heart Failure: No COPD: No Cerebrovascular Accident: No Diabetes: No Diminished Hearing: No Endocrine: No Gastrointestinal Disorders: Yes (INCONTINENCE URINARY) GERD: No Genitourinary: Yes (INCONTINENCE) Headaches: No Hiatal Hernia: No Heparin Induced Thrombocytopen: No Hypertension: Yes (HX HTN, NOT ON MEDS ANYMORE) Immune Disorder: No Implanted Vascular Access Dvce: No Kidney Stones: No Musculoskeletal: Yes Neurologic: No Psychiatric: No Reproductive: No Respiratory: No Immunizations Current: Yes Migraines: No Radiation Therapy: No Renal Failure: No Seizures: No Sleep Apnea: No Thyroid Disease: No Ulcer: Yes (HX OF ULCERS- BLEEDING ) Menopausal: Yes Past Surgical History Abdominal Surgery: Yes (2 ) AICD: No Arteriovenous Shunt: No Cardiac Surgery: No Section: Yes Ear Surgery: No Endocrine Surgery: No Eye Surgery: No Genitourinary Surgery: No Gynecologic Surgery: No Insulin Pump: No Joint Replacement: No Neurologic Surgery: No Oral Surgery: No Pacemaker: No Thoracic Surgery: No Tonsillectomy: Yes Other Surgery: Yes Social History Alcohol Use: Yes (OCC) Tobacco Use: No Substance Use: No Allergies-Medications (Allergen,Severity, Reaction): Coded Allergies: No Known Allergies (Unverified Allergy, Unknown, 08/30/17) Reported Meds & Prescriptions Reported Meds & Active Scripts Active Reported Ranitidine (Ranitidine HCl) 150 Mg Tab 150 Mg PO DAILY Hydrochlorothiazide 25 Mg Tab 25 Mg PO BID Potassium Chloride Microencaps 10 Meq Tab 10 Meq PO DAILY Losartan (Losartan Potassium) 50 Mg Tab 50 Mg PO DAILY Review of Systems Except as stated in HPI: all other systems reviewed are Neg General / Constitutional: Positive: Fever, No: Chills HENT: No: Headaches, Neck Pain Cardiovascular: No: Chest Pain or Discomfort, Palpitations Respiratory: No: Cough, Shortness of Breath Gastrointestinal: No: Nausea, Vomiting, Abdominal Pain Genitourinary: No: Frequency, Dysuria Musculoskeletal: Positive: Edema (Left lower extremity with redness), Pain, Other (Drainage to the left posterior calf) Skin: Positive Lesions (Drainage), Positive Other ( from a lesion to her left posterior calf. Redness and cellulitis.) Neurologic: No: Weakness, Dizziness, Headache Physical Exam Narrative GENERAL: Well-developed well-nourished female in no acute respiratory distress. SKIN: Focused skin assessment warm/dry. HEAD: Atraumatic. Normocephalic. EYES: Pupils equal and round. No scleral icterus. No injection or drainage. ENT: No nasal bleeding or discharge. Mucous membranes pink and moist. NECK: Trachea midline. Supple. CARDIOVASCULAR: Regular rate and rhythm. No murmur appreciated. RESPIRATORY: No accessory muscle use. Clear to auscultation. Breath sounds equal bilaterally. GASTROINTESTINAL: Abdomen soft, non-tender, nondistended. Hepatic and splenic margins not palpable. MUSCULOSKELETAL: No obvious deformities. Bilateral lower extremity chronic venous stasis changes. Left lower extremity is erythematous with a draining lesion on the left posterior calf. It is warm to the touch. NEUROLOGICAL: Awake and alert. No obvious cranial nerve deficits. Motor grossly within normal limits. Normal speech. Data Data Last Documented VS Vital Signs Date Time Temp Pulse Resp B/P (MAP) Pulse Ox O2 Delivery O2 Flow Rate FiO2 08/29/17 22:19 100 16 134/67 (89) 96 Room Air 08/29/17 22:07 100.1 Orders Orders Basic Metabolic Panel (Bmp) (08/29/17 22:49) Complete Blood Count With Diff (08/29/17 22:49) Blood Culture (08/29/17 22:49) Wound Culture And Gram Stain (08/29/17 22:49) Iv Access Insert/Monitor (08/29/17 22:49) Tetanus/Diphtheria Tox Adult (Tetanus/Di (08/29/17 23:00) Vancomycin Inj (Vancomycin Inj) (08/29/17 23:30) Vancomycin Consult Pharmacy (Vancomycin (08/30/17 00:45) Cefepime Inj (Maxipime Inj) (08/30/17 01:00) Admit To Inpatient (08/30/17 ) Vital Signs (Adult) Q4H (08/30/17 00:35) Activity Oob With Assistance (08/30/17 00:35) Insurance Agency Owner / Telemetry .CONTINUOUS (08/30/17 00:35) Intake + Output TAMICA.QSHIFT (08/30/17 00:35) Diet Regular Basic (08/30/17 Breakfast) Sodium Chlor 0.9% 1000 Ml Inj (Ns 1000 M (08/30/17 01:00) Sodium Chloride 0.9% Flush (Ns Flush) (08/30/17 00:45) Sodium Chloride 0.9% Flush (Ns Flush) (08/30/17 09:00) Ondansetron Inj (Zofran Inj) (08/30/17 00:45) Comprehensive Metabolic Panel (08/31/17 06:00) Complete Blood Count With Diff (08/31/17 06:00) Case Management Consult (08/30/17 00:35) Heparin Inj (Heparin Inj) (08/30/17 09:00) Acetaminophen (Tylenol) (08/30/17 00:45) Acetamin-Hydrocod 325-5 Mg ([place] 5-325 (08/30/17 00:45) Acetamin-Hydrocod 325-10 Mg ([place] 10-32 (08/30/17 00:45) Docusate Sodium-Senna (Tameka-Colace) (08/30/17 09:00) Magnesium Hydroxide Liq (Milk Of Magnesi (08/30/17 00:45) Sennosides (Senokot) (08/30/17 00:45) Bisacodyl Supp (Dulcolax Supp) (08/30/17 00:45) Lactulose Liq (Lactulose Liq) (08/30/17 00:45) Inpatient Certification (08/30/17 ) Hydrochlorothiazide (Hydrodiuril) (08/30/17 09:00) Losartan (Cozaar) (08/30/17 09:00) Famotidine (Pepcid) (08/30/17 09:00) Vancomycin Inj (Vancomycin Inj) (08/30/17 01:00) Admit Order (Ed Use Only) (08/30/17 01:15) Labs Laboratory Tests Test 08/29/17 22:52 White Blood Count 14.3 TH/MM3 Red Blood Count 4.78 MIL/MM3 Hemoglobin 14.5 GM/DL Hematocrit 41.4 % Mean Corpuscular Volume 86.7 FL Mean Corpuscular Hemoglobin 30.3 PG Mean Corpuscular Hemoglobin Concent 34.9 % Red Cell Distribution Width 14.8 % Platelet Count 190 TH/MM3 Mean Platelet Volume 10.4 FL Neutrophils (%) (Auto) 86.8 % Lymphocytes (%) (Auto) 8.0 % Monocytes (%) (Auto) 4.8 % Eosinophils (%) (Auto) 0.2 % Basophils (%) (Auto) 0.2 % Neutrophils # (Auto) 12.4 TH/MM3 Lymphocytes # (Auto) 1.1 TH/MM3 Monocytes # (Auto) 0.7 TH/MM3 Eosinophils # (Auto) 0.0 TH/MM3 Basophils # (Auto) 0.0 TH/MM3 CBC Comment DIFF FINAL Differential Comment Blood Urea Nitrogen 14 MG/DL Creatinine 1.19 MG/DL Random Glucose 106 MG/DL Calcium Level 8.9 MG/DL Sodium Level 135 MEQ/L Potassium Level 3.4 MEQ/L Chloride Level 99 MEQ/L Carbon Dioxide Level 25.0 MEQ/L Anion Gap 11 MEQ/L Estimat Glomerular Filtration Rate 45 ML/MIN MDM Medical Decision Making Medical Screen Exam Complete: Yes Emergency Medical Condition: Yes Differential Diagnosis Cellulitis versus chronic venous stasis changes versus DVT Narrative Course 67-year-old female with recurrent left lower extremity cellulitis, presents here with redness and drainage from her left lower extremity. Patient has fever at home as well. Patient is noted to be with a white count of 14,000. She also has renal insufficiency which is not new. She will be admitted to the hospital for IV antibiotics. Daughters at the bedside is requested a case management consult to see if we can help possibly finding her other avenues for funding for her healthcare. Sepsis Criteria SIRS Criteria (2 or more): Heart rate over 90, WBC > 68946, < 4000 or > 10% bands Diagnosis Primary Impression: Cellulitis of left lower extremity Additional Impressions: Fever Chronic venous stasis changes of the bilateral lower extremities Sepsis by SIRS criteria Admitting Information Admitting Physician Requests: Admit Sergio Andrade MD Aug 30, 2017 00:26
[2017-08-30] MEDS ORDERED: SENNOSIDES 8.6 MG TAB PO PRN (00:45)
[2017-08-30] MEDS ORDERED: ACETAMINOPHEN 325 MG TAB PO PRN (00:45)
[2017-08-30] MEDS ORDERED: LACTULOSE SYRUP 20 GM/30 ML CUP PO PRN (00:45)
[2017-08-30] MEDS ORDERED: BISACODYL 10 MG SUPP RECTAL PRN (00:45)
[2017-08-30] MEDS ORDERED: SODIUM CHLORIDE 0.9% FLUSH 10 ML FLUSH IV FLUSH PRN (00:45)
[2017-08-30] MEDS ORDERED: MAGNESIUM HYDROXIDE SUSP 30 ML CUP PO PRN (00:45)
[2017-08-30] MEDS ORDERED: Vancomycin Consult Pharmacy 1 EA OTHER SCH (00:45)
[2017-08-30] MEDS ORDERED: ONDANSETRON HCL 4 MG/2 ML VIAL IVP PRN (00:45)
[2017-08-30] MEDS ORDERED: VANCOMYCIN 1,000 MG/NS 250 ML IV SCH ×2 (01:00)
[2017-08-30] MEDS: CEFEPIME INJ 1,000 MG in SODIUM CHLORIDE 0.9% INJ 100 ML IV SCH ×2 (01:35→15:17)
[2017-08-30] MEDS: SODIUM CHLOR 0.9% 1000 ML INJ 1,000 ML IV SCH ×3 (01:35→21:54)
--- NOTE | 2017-08-30 02:14 | HHI.HP ---
[facility] Unknown Admission Diagnosis left lower extremity cellulitis, Diagnoses: (1) Sepsis Diagnosis: Principal (2) Cellulitis of left lower extremity Diagnosis: Principal (3) ELSY (acute kidney injury) Diagnosis: Principal Travel History International Travel<30 Days: No Contact w/Intl Traveler <30 Da: No Traveled to Known Affected Are: No History of Present Illness This is a 67-year-old female with a PMH of HTN and Recurrent LLE Cellulitis who presented to the ER with complaints of pain and swelling to left leg x2-3 days. H/o similar symptoms in the past for which she was previously admitted 03/07/17 , no recurrence until now. Pain is constant, throbbing, 8/10, no alleviating factors. Reports associated fever/chills. On arrival, 150/72, HR 102, O2 sat 96% on RA, Temp 100.1. WBC 14.3. Creatinine 1.19, previously 0.93 on 2016. s/p Blood Cultures and Vanco IV. Review of Systems Except as stated in HPI: all other systems reviewed are Neg ROS: 14 point review of systems otherwise negative. Past Family Social History Past Medical History PMH: HTN and Recurrent LLE Cellulitis Past Surgical History PAST SURGICAL HISTORY: , Tonsillectomy Allergies: Coded Allergies: No Known Allergies (Unverified Allergy, Unknown, 08/30/17) Family History PAST FAMILY HISTORY: Reviewed. No h/o DM or CAD Social History PAST SOCIAL HISTORY: Occasional alcohol. Negative for tobacco or drugs per Physical Exam Vital Signs Vital Signs Date Time Temp Pulse Resp B/P (MAP) Pulse Ox O2 Delivery O2 Flow Rate FiO2 08/29/17 22:19 100 16 134/67 (89) 96 Room Air 08/29/17 22:07 100.1 102 18 150/72 (98) 96 Room Air Physical Exam PE: GENERAL: Middle-aged white female in no acute distress. Flat affect. HEENT: PERRLA, EOMI. No scleral icterus or conjunctival pallor. No lid lag or facial droop. CARDIOVASCULAR: Regular rate and rhythm. No obvious murmurs to auscultation. No chest tenderness to palpation. RESPIRATORY: No obvious rhonchi or wheezing. Clear to auscultation. Breath sounds equal bilaterally. GASTROINTESTINAL: Abdomen soft, non-tender, nondistended. BS normal. MUSCULOSKELETAL: Extremities without clubbing, cyanosis, or edema. No obvious deformities. Chronic venous stasis bilaterally. LLE with erythema/edema, calf with draining wound. NEUROLOGICAL: Awake, alert and oriented x4. No focal neurologic deficits. Moving both upper and lower extremities spontaneously. Laboratory Laboratory Tests Test 08/29/17 22:52 White Blood Count 14.3 Red Blood Count 4.78 Hemoglobin 14.5 Hematocrit 41.4 Mean Corpuscular Volume 86.7 Mean Corpuscular Hemoglobin 30.3 Mean Corpuscular Hemoglobin Concent 34.9 Red Cell Distribution Width 14.8 Platelet Count 190 Mean Platelet Volume 10.4 Neutrophils (%) (Auto) 86.8 Lymphocytes (%) (Auto) 8.0 Monocytes (%) (Auto) 4.8 Eosinophils (%) (Auto) 0.2 Basophils (%) (Auto) 0.2 Neutrophils # (Auto) 12.4 Lymphocytes # (Auto) 1.1 Monocytes # (Auto) 0.7 Eosinophils # (Auto) 0.0 Basophils # (Auto) 0.0 CBC Comment DIFF FINAL Differential Comment Blood Urea Nitrogen 14 Creatinine 1.19 Random Glucose 106 Calcium Level 8.9 Sodium Level 135 Potassium Level 3.4 Chloride Level 99 Carbon Dioxide Level 25.0 Anion Gap 11 Estimat Glomerular Filtration Rate 45 Date/Time Source Procedure Growth Status 08/29/17 22:52 Blood Peripheral Aerobic Blood Culture Pending Received 08/29/17 22:52 Blood Peripheral Anaerobic Blood Culture Pending Received 08/29/17 22:52 Wound Leg Gram Stain Pending Received 08/29/17 22:52 Wound Leg Wound Culture Pending Received Result Diagram: 08/29/17225108/29/172251 Caprini VTE Risk Assessment Caprini VTE Risk Assessment: Mod/High Risk (score >= 2) Caprini Risk Assessment Model Point Value = 1 Point Value = 2 Point Value = 3 Point Value = 5 Age 41-60 Minor surgery BMI > 25 kg/m2 Swollen legs Varicose veins or History of unexplained or recurrent spontaneous Oral contraceptives or hormone replacement Sepsis (< 1 month) Serious lung disease, including pneumonia (< 1 month) Abnormal pulmonary function Acute myocardial infarction Congestive heart failure (< 1 month) History of inflammatory bowel disease Medical patient at bed rest Age 61-74 Arthroscopic surgery Major open surgery (> 45 min) Laparoscopic surgery (> 45 min) Malignancy Confined to bed (> 72 hours) Immobilizing plaster cast Central venous access Age >= 75 History of VTE Family history of VTE Factor V Leiden Prothrombin [id number] Lupus anticoagulant Anticardiolipin antibodies Elevated serum homocysteine Heparin-induced thrombocytopenia Other congenital or acquired thrombophilia Stroke (< 1 month) Elective arthroplasty Hip, pelvis, or leg fracture Acute spinal cord injury (< 1 month) Prophylaxis Regimen Total Risk Factor Score Risk Level Prophylaxis Regimen 0-1 Low Early ambulation 2 Moderate Order ONE of the following: *Sequential Compression Device (SCD) *Heparin 5000 units SQ BID 3-4 Higher Order ONE of the following medications: *Heparin 5000 units SQ TID *Enoxaparin/Lovenox 40 mg SQ daily (WT < 150 kg, CrCl > 30 mL/min) *Enoxaparin/Lovenox 30 mg SQ daily (WT < 150 kg, CrCl > 10-29 mL/min) *Enoxaparin/Lovenox 30 mg SQ BID (WT < 150 kg, CrCl > 30 mL/min) AND/OR *Sequential Compression Device (SCD) 5 or more Highest Order ONE of the following medications: *Heparin 5000 units SQ TID (Preferred with Epidurals) *Enoxaparin/Lovenox 40 mg SQ daily (WT < 150 kg, CrCl > 30 mL/min) *Enoxaparin/Lovenox 30 mg SQ daily (WT < 150 kg, CrCl > 10-29 mL/min) *Enoxaparin/Lovenox 30 mg SQ BID (WT < 150 kg, CrCl > 30 mL/min) AND *Sequential Compression Device (SCD) Assessment and Plan Problem List: (1) Sepsis ICD Code: A41.9 - Sepsis Status: Acute (2) Cellulitis of left lower extremity ICD Code: L03.116 - Cellulitis of left lower extremity Status: Acute (3) ELSY (acute kidney injury) ICD Code: N17.9 - Acute kidney failure, unspecified Assessment and Plan A/P: 1. Sepsis: Temp 100.1, HR 102, WBC 14.3, Source-LLE Cellulitis. s/p Blood/ Wound cultures, Vanco IV. Follow-up cultures, continue with IV Vanco/Cefepime. IVF for hydration. 2. LLE Cellulitis: Recurrent. Progressive erythema/edema w/ draining wound, follow up cultures, continue w/ IV Abx as above. Consult ID as needed for further recommendations. 3. ELSY: Creatinine 1.19, previously 0.93. IVF for hydration, repeat labs in a.m. 4. DVT Prophylaxis: Heparin sq 5. Social work for DC planning as needed. 6. Case discussed at length with the ER physician, lab/record/imaging reviewed by me. Physician Certification 2 Midnight Certification Type: Admission for Inpatient Services Order for Inpatient Services The services are ordered in accordance with Medicare regulations or non- Medicare payer requirements, as applicable. In the case of services not specified as inpatient-only, they are appropriately provided as inpatient services in accordance with the 2-midnight benchmark. Estimated LOS (days): 2 days is the estimated time the patient will need to remain in the hospital, assuming treatment plan goals are met and no additional complications. Post-Hospital Plan: Not yet determined Elisa Conroy MD Aug 30, 2017 02:14
[2017-08-30] MEDS: ACETAMINOPHEN/HYDROcodone 325 MG/5 MG TAB PO PRN ×2 (03:12→12:16)
[2017-08-30] MEDS: SODIUM CHLORIDE 0.9% FLUSH 10 ML FLUSH IV FLUSH SCH ×2 (07:43→20:04)
[2017-08-30] MEDS: DOCUSATE SODIUM 50 MG/SENNA 8.6 MG TAB PO SCH ×2 (09:00→20:05)
[2017-08-30] MEDS: HYDROCHLOROTHIAZIDE 25 MG TAB PO SCH ×2 (09:41→20:59)
[2017-08-30] MEDS: FAMOTIDINE 20 MG TAB PO SCH (09:41)
[2017-08-30] MEDS: HEPARIN SODIUM - SQ 10,000 UNITS/ML VIAL SQ SCH ×2 (09:41→20:59)
[2017-08-30] MEDS: LOSARTAN 50 MG TAB PO SCH (09:41)
--- NOTE | 2017-08-30 13:39 | HHI.PR ---
Addendum to Inpatient Note Addendum Reason: Additional Documentation Additional Information Patient seen today, lying in bed, no acute distress. Denies any pain in her left lower extremity or any difficulty walking. Has some mild diffuse erythema on the medial and anterior aspect of her leg. Instructed for nursing to lauri daily. Luan Alvarado MD Aug 30, 2017 13:39
[2017-08-30 14:23] LABS: BASOPHIL % 0.3 % (0.0-2.0); EOSINOPHIL % 0.1 % (0.0-4.0); HEMATOCRIT 38.1 % (35.0-46.0); HEMOGLOBIN 13.1 GM/DL (11.6-15.3); LYMPH % 15.7 % (9.0-44.0); LYMPHOCYTE # 1.4 TH/MM3 (1.0-4.8); MEAN CELL VOLUME 87.6 FL (80.0-100.0); MEAN CORPUSCULAR HGB CONC 34.3 % (32.0-36.0); MEAN PLATELET VOLUME 8.9 FL (7.0-11.0); MONO % 7.8 % (0.0-8.0); MONOCYTE # 0.7 TH/MM3 (0-0.9); NEUT % 76.1 % (16.0-70.0); PLATELET COUNT 147 TH/MM3 (150-450); RED BLOOD COUNT 4.35 MIL/MM3 (4.00-5.30); RED CELL DISTRIBUTION WIDTH 14.8 % (11.6-17.2); WHITE BLOOD COUNT 9.2 TH/MM3 (4.0-11.0)
[2017-08-30 14:37] LABS: BICARBONATE 29.4 MEQ/L (21.0-32.0); CALCIUM 8.2 MG/DL (8.5-10.1); CREATININE 1.02 MG/DL (0.50-1.00)
[2017-08-30] MEDS ORDERED: SODIUM CHLOR 0.9% 1000 ML INJ 1,000 ML IV ONE (16:30)
[2017-08-30] MEDS: VANCOMYCIN INJ 1,500 MG in SODIUM CHLORID 0.9% 500 ML INJ 500 ML IV SCH (17:27)
[2017-08-31 00:31] VITALS: BP 103/61; PULSE 73; RESP 17; TEMP 99.9; O2SAT 98
[2017-08-31] MEDS: CEFEPIME INJ 1,000 MG in SODIUM CHLORIDE 0.9% INJ 100 ML IV SCH ×2 (01:15→13:33)
[2017-08-31 05:46] VITALS: BP 140/69; PULSE 86; RESP 17; TEMP 99.2; O2SAT 98
[2017-08-31 08:00] VITALS: BP 136/65; PULSE 93; RESP 18; TEMP 98.5; O2SAT 97
[2017-08-31] MEDS: DOCUSATE SODIUM 50 MG/SENNA 8.6 MG TAB PO SCH ×3 (09:00→20:34)
[2017-08-31] MEDS: SODIUM CHLORIDE 0.9% FLUSH 10 ML FLUSH IV FLUSH SCH ×2 (09:00→20:32)
[2017-08-31] MEDS: SODIUM CHLOR 0.9% 1000 ML INJ 1,000 ML IV SCH ×2 (09:09→17:00)
[2017-08-31] MEDS: FAMOTIDINE 20 MG TAB PO SCH (09:21)
[2017-08-31] MEDS: LOSARTAN 50 MG TAB PO SCH (09:21)
[2017-08-31] MEDS: HEPARIN SODIUM - SQ 10,000 UNITS/ML VIAL SQ SCH ×3 (09:22→20:34)
[2017-08-31] MEDS: HYDROCHLOROTHIAZIDE 25 MG TAB PO SCH ×3 (09:23→20:34)
[2017-08-31 09:30] LABS: AUTOMATED NEUTROPHIL # 5.4 TH/MM3 (1.8-7.7); BASOPHIL % 0.4 % (0.0-2.0); EOSINOPHIL % 0.5 % (0.0-4.0); HEMATOCRIT 38.5 % (35.0-46.0); HEMOGLOBIN 13.2 GM/DL (11.6-15.3); LYMPH % 17.8 % (9.0-44.0); LYMPHOCYTE # 1.3 TH/MM3 (1.0-4.8); MEAN CELL VOLUME 86.5 FL (80.0-100.0); MEAN CORPUSCULAR HEMOGLOBIN 29.7 PG (27.0-34.0); MEAN CORPUSCULAR HGB CONC 34.4 % (32.0-36.0); MEAN PLATELET VOLUME 9.3 FL (7.0-11.0); MONO % 9.3 % (0.0-8.0); MONOCYTE # 0.7 TH/MM3 (0-0.9); PLATELET COUNT 167 TH/MM3 (150-450); RED BLOOD COUNT 4.45 MIL/MM3 (4.00-5.30); RED CELL DISTRIBUTION WIDTH 14.8 % (11.6-17.2); WHITE BLOOD COUNT 7.5 TH/MM3 (4.0-11.0)
[2017-08-31 09:53] LABS: ALBUMIN 2.6 GM/DL (3.4-5.0); ALT (GPT) 40 U/L (10-53); AST (GOT) 32 U/L (15-37); BICARBONATE 26.5 MEQ/L (21.0-32.0); BLOOD UREA NITROGEN 13 MG/DL (7-18); CALCIUM 8.5 MG/DL (8.5-10.1); CHLORIDE 106 MEQ/L (98-107); CREATININE 0.96 MG/DL (0.50-1.00); GLOMERULAR FILTRATION RATE 58 ML/MIN (>89); GLUCOSE,RANDOM 99 MG/DL (74-106); MAGNESIUM 2.1 MG/DL (1.5-2.5); SODIUM (NA) 139 MEQ/L (136-145)
[2017-08-31 09:56] LABS: ALKALINE PHOSPHATASE 74 U/L (45-117); TOTAL BILIRUBIN ADULT 0.6 MG/DL (0.2-1.0); TOTAL PROTEIN 7.3 GM/DL (6.4-8.2)
[2017-08-31 12:00] VITALS: BP 114/66; PULSE 71; RESP 18; TEMP 97.8; O2SAT 97
[2017-08-31 16:00] VITALS: BP 133/66; PULSE 79; RESP 18; TEMP 99.9; O2SAT 97
[2017-08-31] MEDS: VANCOMYCIN INJ 1,500 MG in SODIUM CHLORID 0.9% 500 ML INJ 500 ML IV SCH (17:11)
[2017-08-31] MEDS ORDERED: POTASSIUM CHLORIDE 10 MEQ CONTROLLED RELEASE TAB PO ONE (17:30)
[2017-08-31] MEDS ORDERED: FUROSEMIDE 40 MG/4 ML VIAL IV PUSH ONE (17:30)
--- NOTE | 2017-08-31 17:34 | HHI.PR ---
Subjective Remarks RN denies any det since last night. Pt says edema is new but redness is better in her left leg, says she still has some pain in left leg Objective Vital Signs Date Time Temp Pulse Resp B/P (MAP) Pulse Ox O2 Delivery O2 Flow Rate FiO2 08/31/17 16:00 99.9 79 18 133/66 (88) 97 08/31/17 12:00 97.8 71 18 114/66 (82) 97 08/31/17 08:00 98.5 93 18 136/65 (88) 97 08/31/17 05:46 99.2 86 17 140/69 (92) 98 08/31/17 00:31 99.9 73 17 103/61 (75) 98 08/30/17 21:37 99.5 75 17 116/63 (80) 18 08/30/17 18:40 113/66 (82) I/O 08/30/17 08/30/17 08/30/17 08/31/17 08/31/17 08/31/17 07:00 15:00 23:00 07:00 15:00 23:00 Intake Total 250 ml 1480 ml 240 ml Output Total 150 ml Balance 250 ml 1330 ml 240 ml Intake Oral 480 ml 240 ml IV Total 250 ml 1000 ml Output Urine Total 150 ml # Voids 1 3 3 # Bowel Movements 0 Result Diagram: 08/31/1790408/31/17904 Objective Remarks left leg appears moderately edematous today, erythema improved per markings lying in bed, NAD, unlabored breathing A/P Assessment and Plan A/P: Sepsis: 2/2 cellulitis, see tx below LLE Cellulitis: Recurrent. Progressive erythema/edema w/ draining wound, follow up cultures, continue vanc and cefepime. staph growing, sensitivities to follow new onset LLE edema - ordering echo and Leg US ELSY: resolved Luan Alvarado MD Aug 31, 2017 17:34
[2017-08-31 20:00] VITALS: BP 127/66; PULSE 87; PULSE 88; RESP 20; TEMP 98.9; O2SAT 97
[2017-09-01 00:23] VITALS: BP 130/68; PULSE 78; RESP 20; TEMP 96.8; O2SAT 98
[2017-09-01] MEDS: CEFEPIME INJ 1,000 MG in SODIUM CHLORIDE 0.9% INJ 100 ML IV SCH ×2 (00:23→12:00)
[2017-09-01] MEDS: ACETAMINOPHEN/HYDROcodone 325 MG/10 MG TAB PO PRN ×2 (01:07→08:02)
[2017-09-01 04:00] VITALS: BP 101/57; PULSE 67; RESP 20; TEMP 97.2; O2SAT 95
[2017-09-01] MEDS: FAMOTIDINE 20 MG TAB PO SCH (07:59)
[2017-09-01] MEDS: LOSARTAN 50 MG TAB PO SCH (07:59)
[2017-09-01] MEDS: HYDROCHLOROTHIAZIDE 25 MG TAB PO SCH (07:59)
[2017-09-01 08:00] VITALS: BP 125/78; PULSE 68; PULSE 78; RESP 18; TEMP 97; O2SAT 97
[2017-09-01] MEDS: HEPARIN SODIUM - SQ 10,000 UNITS/ML VIAL SQ SCH (08:00)
[2017-09-01] MEDS: SODIUM CHLORIDE 0.9% FLUSH 10 ML FLUSH IV FLUSH SCH (08:02)
[2017-09-01] MEDS: DOCUSATE SODIUM 50 MG/SENNA 8.6 MG TAB PO SCH (08:02)
[2017-09-01] MEDS ORDERED: POTASSIUM CHLORIDE 10 MEQ CONTROLLED RELEASE TAB PO SCH (09:00)
[2017-09-01] MEDS ORDERED: FUROSEMIDE 40 MG/4 ML VIAL IV PUSH SCH (09:00)
--- NOTE | 2017-09-01 09:54 | RADRPT ---
EXAM DATE/TIME: 09/01/2017 09:20 [place] COMPARISON: No previous studies available for comparison. EXTERNAL COMPARISON : [facility], US LEG, BILATERAL VENOUS DOPPLER, September 19, 2013 INDICATIONS : Swelling in left leg. MEDICAL HISTORY : Hypertension. Ulcers. Arthritis. Neck pain. Incontinence. Heartburn. Urinary tract infections. Chr onic back pain. Measles. Blood transfusions. SURGICAL HISTORY : Tonsillectomy. section. ENCOUNTER: Subsequent ACUITY: 4 - 6 days PAIN SCORE: 2/10 LOCATION: Left leg. TECHNIQUE: Venous ultrasound of the leg was performed from the inguinal ligament to the proximal calf. Real-jojo e, color Doppler and spectral tracing, compression and augmentation techniques were used. FINDINGS: There is normal compressibility of the deep venous system from the inguinal region to the proximal ca lf. No echogenic clot is seen in the lumen of the common femoral, femoral, popliteal, and posterior tibial veins. There is a normal response of the venous system to proximal and distal augmentation an d respiration. There are some prominent inguinal lymph nodes. CONCLUSION: No evidence of left leg DVT Micky Wesley MD on September 01, 2017 at 9:51 Board Certified Radiologist. This report was verified electronically.
[2017-09-01 11:11] LABS: BICARBONATE 27.2 MEQ/L (21.0-32.0); CALCIUM 9.2 MG/DL (8.5-10.1); CREATININE 1.09 MG/DL (0.50-1.00)
--- NOTE | 2017-09-01 11:51 | ECHRPT ---
Indication: Heart Failure CONCLUSIONS The left ventricular systolic function is normal with an estimated ejection fraction in the range of 60-65%. Mild concentric left ventricular hypertrophy. Normal left ventricular size. Trace mitral valve regurgitation. Aortic valve sclerosis is present. Mild aortic valve regurgitation. There is trace tricuspid valve regurgitation. The estimated pulmonary arterial pressure is 36.1 mmHg. Trivial pulmonary valve regurgitation. BP: 136 / 95 HR: 93 Rhythm: Sinus MEASUREMENTS (Male / Female) Normal Values Technical Quality:Fair 2D ECHO LV Diastolic Diameter PLAX 4.0 cm 4.2 - 5.9 / 3.9 - 5.3 cm LV Systolic Diameter PLAX 2.9 cm IVS Diastolic Thickness 1.3 cm 0.6 - 1.0 / 0.6 - 0.9 cm LVPW Diastolic Thickness 0.9 cm 0.6 - 1.0 / 0.6 - 0.9 cm LV Relative Wall Thickness 0.6 RV Internal Dim ED PLAX 4.3 cm LVOT Diameter 1.9 cm LA Systolic Diameter LX 3.6 cm 3.0 - 4.0 / 2.7 - 3.8 cm M-MODE Aortic Root Diameter MM 2.8 cm LA Systolic Diameter MM 3.5 cm LA Ao Ratio MM 1.3 AV Cusp Separation MM 1.6 cm DOPPLER AV Peak Velocity 204.0 cm/s AV Peak Gradient 16.6 mmHg AV Mean Gradient 7.0 mmHg AV Velocity Time Integral 34.4 cm LVOT Peak Velocity 140.0 cm/s LVOT Peak Gradient 7.8 mmHg LVOT Velocity Time Integral 27.1 cm LVOT Cardiac Index 3528.5 cm/minm AV Area Cont Eq vti 2.2 cm AV Area Cont Eq pk 1.9 cm MV Area PHT 2.4 cm Mitral E Point Velocity 68.8 cm/s Mitral A Point Velocity 88.8 cm/s Mitral E to A Ratio 0.8 LV E' Lateral Velocity 8.3 cm/s Mitral E to LV E' Lateral Ratio 8.3 LV E' Septal Velocity 5.9 cm/s Mitral E to LV E' Septal Ratio 11.6 TR Peak Velocity 255.5 cm/s TR Peak Gradient 26.1 mmHg Right Atrial Pressure 10.0 mmHg Pulmonary Artery Systolic Pressu 36.1 mmHg Right Ventricular Systolic Press 36.1 mmHg FINDINGS LEFT VENTRICLE The left ventricular systolic function is normal with an estimated ejection fraction in the range of 60-65%. Mild concentric left ventricular hypertrophy. Normal left ventricular size. RIGHT VENTRICLE Normal right ventricular size and systolic function. LEFT ATRIUM The left atrial size is normal. RIGHT ATRIUM The right atrial size is normal. ATRIAL SEPTUM Normal atrial septal thickness without atrial level shunting by limited color doppler interrogation. AORTA The aortic root and proximal ascending aorta are normal in size on limited imaging. MITRAL VALVE Structurally normal mitral valve. Trace mitral valve regurgitation. AORTIC VALVE Aortic valve sclerosis is present. Mild aortic valve regurgitation. TRICUSPID VALVE Structurally normal tricuspid valve. There is trace tricuspid valve regurgitation. The estimated pulmonary arterial pressure is 36.1 mmHg. PULMONARY VALVE Trivial pulmonary valve regurgitation. VESSELS The inferior vena cava is normal in size. PERICARDIUM No pericardial effusion. Ike Rain MD, FACC, FSCAI (Electronically Signed) Final Date:01 September 2017 11:50
[2017-09-01] MEDS ORDERED: LEVO750T3 PO (11:59)
[2017-09-01] MEDS ORDERED: KLOR20TA3 PO (11:59)
[2017-09-01] MEDS ORDERED: FURO20TA PO (11:59)
--- NOTE | 2017-09-01 11:59 | HHI.DCPOC ---
Discharge Care Plan Diagnosis: (1) Edema (2) Cellulitis of left lower extremity Goals to Promote Your Health * To prevent worsening of your condition and complications * To maintain your health at the optimal level Directions to Meet Your Goals Take your medications as prescribed Follow your dietary instruction Follow activity as directed Keep your appointments as scheduled Take your immunizations and boosters as scheduled If your symptoms worsen call your PCP, if no PCP go to Urgent Care Center or Emergency Room Smoking is Dangerous to Your Health. Avoid second hand smoke Call the 24-hour hour crisis hotline for domestic abuse at Luan Alvarado MD Sep 01, 2017 11:59
[2017-09-01 12:00] VITALS: BP 91/58; PULSE 63; PULSE 64; RESP 18; TEMP 96.9; O2SAT 96
--- NOTE | 2017-09-01 12:03 | HHI.DS ---
Discharge Summary Admission Date Aug 30, 2017 at 01:16 Discharge Date: Sep 01, 2017 Admitting Diagnosis left lower extremity cellulitis, (1) Cellulitis of left lower extremity ICD Code: L03.116 - Cellulitis of left lower extremity Status: Acute (2) Edema ICD Code: R60.9 - Edema, unspecified Procedures none Brief History - From Admission This is a 67-year-old female with a PMH of HTN and Recurrent LLE Cellulitis who presented to the ER with complaints of pain and swelling to left leg x2-3 days. H/o similar symptoms in the past for which she was previously admitted 03/07/17 , no recurrence until now. Pain is constant, throbbing, 8/10, no alleviating factors. Reports associated fever/chills. On arrival, 150/72, HR 102, O2 sat 96% on RA, Temp 100.1. WBC 14.3. Creatinine 1.19, previously 0.93 on 2016. s/p Blood Cultures and Vanco IV. CBC/BMP: 08/31/17 0905 09/01/17 0955 Significant Findings Laboratory Tests Test 08/29/17 22:52 08/30/17 14:15 08/31/17 09:05 09/01/17 09:55 White Blood Count 14.3 TH/MM3 (4.0-11.0) Neutrophils (%) (Auto) 86.8 % (16.0-70.0) 76.1 % (16.0-70.0) 72.0 % (16.0-70.0) Lymphocytes (%) (Auto) 8.0 % (9.0-44.0) Neutrophils # (Auto) 12.4 TH/MM3 (1.8-7.7) Creatinine 1.19 MG/DL (0.50-1.00) 1.02 MG/DL (0.50-1.00) 1.09 MG/DL (0.50-1.00) Sodium Level 135 MEQ/L (136-145) Potassium Level 3.4 MEQ/L (3.5-5.1) 3.2 MEQ/L (3.5-5.1) 3.3 MEQ/L (3.5-5.1) Estimat Glomerular Filtration Rate 45 ML/MIN (>89) 54 ML/MIN (>89) 58 ML/MIN (>89) 50 ML/MIN (>89) Platelet Count 147 TH/MM3 (150-450) Calcium Level 8.2 MG/DL (8.5-10.1) Monocytes (%) (Auto) 9.3 % (0.0-8.0) Albumin 2.6 GM/DL (3.4-5.0) Blood Urea Nitrogen 20 MG/DL (7-18) Imaging Last Impressions Lower Extremity Ultrasound 09/01/17 0000 Signed Impressions: Service Date/Time: Friday, September 01, 2017 09:20 - CONCLUSION: No evidence of left leg DVT Micky Wesley MD Hospital Course Patient was admitted, started on IV antibiotics as well as diuretics. Her erythema and edema in her left lower extremity significantly improved. Echo and left lower leg ultrasound were unremarkable. Her wound cultures growing pansensitive staph aureus, blood cultures are negative. Patient has met maximal benefit from hospitalization and is clinically stable for discharge w/ po abx. Pt Condition on Discharge: Stable Discharge Disposition: Discharge Home Discharge Time: <= 30 minutes Discharge Instructions DIET: Follow Instructions for: Heart Healthy Diet Activities you can perform: Weight Bearing as Gavi Follow up Referrals: PCP Follow-up - 1 Week New Medications: Furosemide (Furosemide) 20 Mg Tab 20 MG PO DAILY for swelling, #30 TAB 0 Refills Levofloxacin (Levofloxacin) 750 Mg Tablet 750 MG PO DAILY for Infection, #10 TAB 0 Refills Potassium Chloride Microencaps (Klor-Con M20) 20 Meq Tab 20 MEQ PO DAILY for Electrolyte Replacement, #30 TAB 0 Refills Continued Medications: Hydrochlorothiazide (Hydrochlorothiazide) 25 Mg Tab 25 MG PO BID, #30 TAB Losartan (Losartan) 50 Mg Tab 50 MG PO DAILY for Blood Pressure Management, #30 TAB 0 Refills Ranitidine (Ranitidine) 150 Mg Tab 150 MG PO DAILY for Heartburn Management, #30 TAB 0 Refills Discontinued Medications: Potassium Chloride Microencaps (Potassium Chloride Microencaps) 10 Meq Tab 10 MEQ PO DAILY for Electrolyte Replacement, #30 TAB 0 Refills Luan Alvarado MD Sep 01, 2017 12:03
[2017-09-01] MEDS ORDERED: PHARMACY ORDERED LAB ONE (16:45)
== END 2017-09-01 15:55 | disposition home or self-care (01) | DRG 872 ==
LOC: NEPE 22:01 → NEDA 08-30 01:16 → HOCB 08-30 02:39
PROVIDERS: ADMIT Hospitalist; ATTEND Hospitalist
DX: A41.9 Sepsis, unspecified organism (principal); N17.9 Acute kidney failure, unspecified; L03.116 Cellulitis of left lower limb; B95.61 Methicillin susceptible Staphylococcus aureus infection as the cause of diseases classified elsewhere; I10 Essential (primary) hypertension; I87.8 Other specified disorders of veins
CPT/HCPCS: 80048; 80053; 83735; 85025; 86403; 87040; 87070; 87147; 87186; 87205; 90471; 90714; 93306; 93971; 96365; J0692; J1644; J1940; J3370; J7030; J7040; J7050